=== PATIENT | female | born 1955 | race Caucasian/White ===

== ENCOUNTER 2023-01-21 08:12 | Day surgery (SDC) | payer BC, MEDICARE ==
[~2023-01-21 08:12] MED LIST: Lactated Ringers 1,000 ML IV SCH; Scopolamine 1.5 MG Transdermal Patch TOP ONE
[2023-01-21] MEDS ORDERED: Naloxone 0.4 MG/ML SDV IVPUSH PRN (08:22)
[2023-01-21] MEDS ORDERED: Albuterol 0.083% 2.5 MG/3 ML Neb Soln NEB PRN (08:22)
[2023-01-21] MEDS ORDERED: fentaNYL 50 MCG/ML SDV IVPUSH PRN (08:22)
[2023-01-21] MEDS ORDERED: Metoclopramide 10 MG/2 ML SDV IVPUSH PRN (08:22)
[2023-01-21] MEDS ORDERED: HYDROmorphone 1 MG/ML Syringe IVPUSH PRN (08:22)
[2023-01-21] MEDS ORDERED: Ondansetron 4 MG/2 ML SDV IVPUSH PRN (08:22)
[2023-01-21] MEDS ORDERED: Morphine 2 MG/ML SYRINGE IVPUSH PRN (08:22)
[2023-01-21] MEDS ORDERED: Propofol 200 MG/20 ML SDV ONE (09:00)
[2023-01-21] MEDS ORDERED: fentaNYL 100 MCG/2 ML SDV ONE (09:00)
[2023-01-21] MEDS ORDERED: Dexmedetomidine 200 MCG/2 ML SDV ONE (09:02)
[2023-01-21] MEDS ORDERED: Dexamethasone 4 MG/ML 5 ML MDV ONE (09:02)
[2023-01-21] MEDS ORDERED: Lidocaine 1% 5 ML VIAL ONE (09:02)
[2023-01-21] MEDS ORDERED: Ondansetron 4 MG/2 ML SDV ONE (09:02)
[2023-01-21] MEDS ORDERED: Ketorolac 30 MG/ML SDV ONE (11:08)
[2023-01-21] MEDS ORDERED: Acetaminophen/oxyCODONE 325-5 MG Tab PO PRN (11:22)
== END 2023-01-21 12:05 | disposition home or self-care (01) ==
LOC: MW.SDS 08:12
PROVIDERS: ATTEND Obstetrics & Gynecology
DX: N84.0 Polyp of corpus uteri (principal); N95.0 Postmenopausal bleeding; F32.A Depression, unspecified; G47.30 Sleep apnea, unspecified; M79.7 Fibromyalgia; E66.9 Obesity, unspecified; Z79.899 Other long term (current) drug therapy; Z98.890 Other specified postprocedural states; Z68.33 Body mass index [BMI] 33.0-33.9, adult
CPT/HCPCS: 58558; A9270; J1100; J1885; J2405; J2704; J3010; J7120; 00952; J3490